=== PATIENT | male | born 1995 | race Two or more races ===

== ENCOUNTER 2019-12-25 12:14 | Inpatient (IN) | payer MEDICAID ==
[~2019-12-25] VITALS: Ht 167.6 cm; Wt 83.2 kg
[2019-12-25 02:35] VITALS: BP 134/86
[2019-12-25 12:53] LABS: Urine Bacteria FEW /hpf (None Seen); Urine Blood Negative /uL (Negative); Urine Specific Gravity 1.015 (1.001-1.035); Urine WBC 49 /hpf (0 - 3)
[2019-12-25 14:09] LABS: Basophils # (auto) 0 10 ^3/uL (0-0.2); Basophils % (auto) 0.1 % (0.0-2.0); Eosinophils # (auto) 0.1 10 ^3/uL (0-0.8); Eosinophils % (auto) 0.5 % (0.0-7.0); Hematocrit 51.5 % (41.0-53.0); Hemoglobin 17.3 g/dL (13.5-17.5); Lymphocytes # (auto) 1.4 10 ^3/uL (0.4-5.4); Lymphocytes % (auto) 8.8 % (10.0-50.0); Mean Corpuscular Hgb Conc. 33.7 g/dL (32.0-36.0); Mean Corpuscular Volume 86.1 fL (80.0-100.0); Monocytes # (auto) 1.1 10 ^3/uL (0-1.3); Monocytes % (auto) 7.1 % (0.0-12.0); Neutrophils # (auto) 13.3 10 ^3/uL (1.6-8.6); Neutrophils % (auto) 83.5 % (37.0-80.0); Nucleated Red Blood Cells % 0.6 %; Platelet Count (auto) 272 10^3/uL (140-450); Red Blood Cells 5.97 10^6/uL (4.5-5.90); Red Cell Distribution Width 14.1 % (11.8-14.3); White Blood Cell 15.9 10^3/uL (4.4-10.8)
[2019-12-25 14:27] LABS: Albumin 3.6 g/dL (3.4-5.0); BUN/Creatinine Ratio 3.4
[2019-12-25 14:34] LABS: Bilirubin, Total 0.6 mg/dL (0.2-1.0); Total Protein 7.8 g/dL (6.4-8.2)
[2019-12-25 14:49] LABS: Potassium 2.8 mmol/L (3.5-5.1)
[2019-12-25] MEDS ORDERED: ONDANSETRON HCL 4 MG/2 ML VIAL IV ONE (15:30)
[2019-12-25] MEDS ORDERED: SODIUM CHLORIDE 0.9% 2,000 ML IV ONE (15:30)
[2019-12-25] MEDS ORDERED: MORPHINE SULF INJ 2 MG/ML SYRINGE 1ML IV ONE ×2 (15:30→16:15)
[2019-12-25] MEDS ORDERED: SODIUM CHLORIDE 0.9% 1,000 ML IVB ONE (15:43)
[2019-12-25] MEDS ORDERED: cefTRIAXone 1GM/50ML D5W 50 ML IV ONE ×2 (15:45→18:45)
[2019-12-25] MEDS: POTASSIUM CHL 20MEQ/100ML 100 ML IV SCH ×4 (15:46→22:06)
[2019-12-25 16:18] LABS: Alcohol, Urine < 3.0 mg/dL (0-10); Amphetamine Screen, Urine NEGATIVE (NEGATIVE); Barbiturate Scree,Urine NEGATIVE (NEGATIVE); Benzodiazephine Screen, Urine NEGATIVE (NEGATIVE); Cannabinoid Screen, Urine NEGATIVE (NEGATIVE); Cocaine Screen, Urine NEGATIVE (NEGATIVE); Opiate Scree,Urine NEGATIVE (NEGATIVE); Phencyclidine Screen, Urine NEGATIVE (NEGATIVE)
[2019-12-25 16:38] LABS: Blood Alcohol < 3.0 mg/dL (0-5); Magnesium 2.3 mg/dL (1.6-2.6)
[2019-12-25] MEDS ORDERED: MORPHINE SULF INJ 2 MG/ML SYRINGE 1ML IV PRN ×2 (18:45→19:00)
[2019-12-25] MEDS ORDERED: FAMOTIDINE (10MG/ML) 2ML VL IV SCH (18:45)
[2019-12-25] MEDS ORDERED: SODIUM CHLORIDE 0.9% 2,200 ML IV ONE (18:45)
[2019-12-25] MEDS ORDERED: DEXTROSE (50%) 50ML SYRG IV PRN (18:45)
[2019-12-25] MEDS ORDERED: THIAMINE 100mg/ml INJ (200mg/2ml VIAL) IV ONE (18:45)
[2019-12-25] MEDS ORDERED: NITROGLYCERIN 0.4 MG SL TAB SL PRN (18:45)
[2019-12-25 18:52] LABS: INR 1.23 (0.9-1.15); Partial Thromboplastin Time 25.9 sec (23.64-32.05)
[2019-12-25] MEDS ORDERED: LORazepam 2MG/ML-1ML VIAL IV PRN (19:00)
[2019-12-25] MEDS ORDERED: PROMETHAZINE HCL 25 MG/ML 1ML IV PRN (19:00)
[2019-12-25] MEDS: MORPHINE SULF INJ 2 MG/ML SYRINGE 1ML IV PRN (20:09)
[2019-12-25] MEDS: SOD CHL 0.9%/ KCL 40MEQ 1,000 ML IV SCH (20:31)
[2019-12-25] MEDS: metroNIDAZOLE 500MG/100ML 100 ML IV SCH (22:25)
[2019-12-25] MEDS: FAMOTIDINE (10MG/ML) 2ML VL IV SCH (22:25)
[2019-12-26] VITALS (7 sets, daily range): BP systolic 134–146; BP diastolic 76–94
[2019-12-26] MEDS: ACCU-CHEK COMFORT CURVE STRIP VI SCH ×4 (00:15→18:16)
[2019-12-26] MEDS: POTASSIUM CHL 20MEQ/100ML 100 ML IV SCH (00:19)
[2019-12-26] MEDS: chlordiazePOXIDE HCL 5 MG CAP PO SCH ×4 (00:20→18:00)
[2019-12-26] MEDS: InsuLIN REG 1unit/0.01ml Soln (100units/ml) SC SCH ×4 (00:20→18:00)
--- NOTE | 2019-12-26 02:35 | NUR ---
Telemetry admit from [facility] admitted to Telemetry unit and oriented to GINA CARRERA RN primary RN, unit, room, bed, and unit policies regarding patient care and visiting hours. Patient now on continuous telemetry monitoring and telemetry reading on arrival to unit is sinus rhythm. Patient placed weighed by bedscale and encouraged to call if they need something. All questions and concerns addressed, patient verbalized understanding. Bed in lowest locked position, side rails up x2, call light within reach. Will round every hour and as needed and continue to monitor.
[2019-12-26] MEDS: MORPHINE SULF INJ 2 MG/ML SYRINGE 1ML IV PRN ×3 (03:05→21:30)
[2019-12-26] MEDS: SOD CHL 0.9%/ KCL 40MEQ 1,000 ML IV SCH ×2 (03:05→08:30)
--- NOTE | 2019-12-26 05:00 | NUR ---
Temperature 100.1 Fahrenheit orally, ice packs applied, blankets removed, temperature of room lowered. Will continue to monitor.
[2019-12-26] MEDS: metroNIDAZOLE 500MG/100ML 100 ML IV SCH (05:51)
--- NOTE | 2019-12-26 06:00 | NUR ---
Temperature reassessed, now 98.3 degrees Fahrenheit orally. No s/s of distress. Will continue to monitor.
--- NOTE | 2019-12-26 07:10 | NUR ---
Patient lying in bed, awake and alert. No s/s of distress. Bed in lowest locked position, side rails up x2, call light within reach. Care endorsed to dayshift RN.
[2019-12-26] MEDS: cefTRIAXone 1GM/50ML D5W 50 ML IV SCH (08:30)
[2019-12-26 09:12] LABS: Basophils # (auto) 0.1 10 ^3/uL (0-0.2); Basophils % (auto) 0.7 % (0.0-2.0); Eosinophils # (auto) 0 10 ^3/uL (0-0.8); Hematocrit 46.2 % (41.0-53.0); Hemoglobin 15.4 g/dL (13.5-17.5); Lymphocytes # (auto) 0.3 10 ^3/uL (0.4-5.4); Mean Corpuscular Hgb Conc. 33.3 g/dL (32.0-36.0); Mean Corpuscular Volume 86.9 fL (80.0-100.0); Monocytes # (auto) 0.9 10 ^3/uL (0-1.3); Monocytes % (auto) 6.1 % (0.0-12.0); Neutrophils # (auto) 13.7 10 ^3/uL (1.6-8.6); Neutrophils % (auto) 91.2 % (37.0-80.0); Nucleated Red Blood Cells % 0.1 %; Platelet Count (auto) 185 10^3/uL (140-450); Red Blood Cells 5.31 10^6/uL (4.5-5.90); Red Cell Distribution Width 14.2 % (11.8-14.3)
[2019-12-26 09:34] LABS: Calcium 8.3 mg/dL (8.5-10.1)
[2019-12-26 09:47] LABS: Albumin 2.7 g/dL (3.4-5.0); BUN/Creatinine Ratio 9.2; Bilirubin, Total 0.8 mg/dL (0.2-1.0); Total Protein 6.1 g/dL (6.4-8.2)
[2019-12-26] MEDS: THIAMINE 100mg/ml INJ (200mg/2ml VIAL) IV SCH (10:06)
[2019-12-26] MEDS: FAMOTIDINE (10MG/ML) 2ML VL IV SCH (10:06)
--- NOTE | 2019-12-26 13:00 | NUR ---
DR STATON ON UNIT
[2019-12-26] MEDS: SOD CHL 0.45% 1,000 ML IV SCH ×2 (14:06→21:31)
--- NOTE | 2019-12-26 19:30 | NUR ---
Opening Shift Note Assumed care of patient, awake and alert oriented x4. No S/S of distress/SOB noted. Bed is in lowest locked position with bed rails up x2 and call light is within reach of the patient. Instructed on POC and to call for assist PRN.
--- NOTE | 2019-12-26 22:30 | NUR ---
Elevated Temperature, Cooling measures: Notified of elevated temperature 101.5 Fahrenheit orally. Ice packs applied, blankets removed with only sheet provided. Temperature of room lowered and placed cool towel on head. Will reassess.
[2019-12-26] MEDS: ACETAMINOPHEN 500 MG TAB PO PRN (22:57)
--- NOTE | 2019-12-27 | NUR ---
Temperature reassessed: Temperature reassessed as 98.0, patient tolerated well. Ice packs removed. Will continue to monitor.
[2019-12-27] MEDS: ACCU-CHEK COMFORT CURVE STRIP VI SCH ×3 (00:18→12:03)
[2019-12-27] MEDS: chlordiazePOXIDE HCL 5 MG CAP PO SCH ×3 (00:19→12:03)
[2019-12-27] MEDS: InsuLIN REG 1unit/0.01ml Soln (100units/ml) SC SCH ×3 (00:26→12:04)
[2019-12-27] MEDS: MORPHINE SULF INJ 2 MG/ML SYRINGE 1ML IV PRN ×2 (04:51→09:00)
[2019-12-27 05:00] VITALS: BP 126/75
--- NOTE | 2019-12-27 05:00 | NUR ---
Elevated Temp, Cooling measures: Notified of elevated temperature 100.3 Fahrenheit orally. Ice packs applied, blankets removed with only sheet provided. Temperature of room lowered and placed cool towel on head. Will reassess.
[2019-12-27] MEDS: SOD CHL 0.45% 1,000 ML IV SCH ×2 (05:36→19:15)
--- NOTE | 2019-12-27 06:10 | NUR ---
Temperature reassessed, continue cooling measures Temperature reassessed as 99.6, keeping ice packs on the patient to reassess. Temperature trending down.
[2019-12-27 06:20] LABS: Basophils # (auto) 0 10 ^3/uL (0-0.2); Basophils % (auto) 0.1 % (0.0-2.0); Eosinophils # (auto) 0 10 ^3/uL (0-0.8); Hematocrit 43.2 % (41.0-53.0); Lymphocytes # (auto) 0.4 10 ^3/uL (0.4-5.4); Lymphocytes % (auto) 3.1 % (10.0-50.0); Mean Corpuscular Hgb Conc. 34.7 g/dL (32.0-36.0); Mean Corpuscular Volume 86.4 fL (80.0-100.0); Monocytes % (auto) 8.6 % (0.0-12.0); Neutrophils # (auto) 10.6 10 ^3/uL (1.6-8.6); Neutrophils % (auto) 88.2 % (37.0-80.0); Platelet Count (auto) 144 10^3/uL (140-450); Red Cell Distribution Width 14.5 % (11.8-14.3)
[2019-12-27 06:41] LABS: Potassium 4.7 mmol/L (3.5-5.1)
[2019-12-27 06:52] LABS: Albumin 2.4 g/dL (3.4-5.0); BUN/Creatinine Ratio 13.6; Bilirubin, Total 3.4 mg/dL (0.2-1.0); Calcium 8.4 mg/dL (8.5-10.1); Total Protein 5.6 g/dL (6.4-8.2)
[2019-12-27 08:00] VITALS: BP 146/81
[2019-12-27] MEDS: THIAMINE 100mg/ml INJ (200mg/2ml VIAL) IV SCH (09:00)
[2019-12-27] MEDS: cefTRIAXone 1GM/50ML D5W 50 ML IV SCH (09:00)
[2019-12-27 09:10] VITALS: BP 146/81
[2019-12-27] MEDS ORDERED: MORPHINE SULF INJ 2 MG/ML SYRINGE 1ML IV PRN (12:30)
[2019-12-27] MEDS ORDERED: chlordiazePOXIDE HCL 5 MG CAP PO PRN (12:30)
[2019-12-27] MEDS ORDERED: LACTULOSE 20Gm/30ML SOLN PO PRN (12:45)
[2019-12-27] MEDS ORDERED: LACTULOSE 20Gm/30ML SOLN PO ONE (12:45)
--- NOTE | 2019-12-27 13:00 | NUR ---
IV removal IV leaking,DC'd with clean sterile technique, catheter fully intact. Pressure dressing applied to site. Patient tolerated well.
--- NOTE | 2019-12-27 13:15 | NUR ---
IV insertion IV access obtained, via clean sterile technique by inserting 20 gauge catheter in the left forearm after 1 attempt. IV secured properly. No trauma to site. Patient tolerated well.
[2019-12-27 13:51] VITALS: BP 127/80
[2019-12-27] MEDS: traMADol HCL 50 MG TAB PO PRN ×2 (13:52→19:55)
--- NOTE | 2019-12-27 14:52 | NUR ---
PAIN REASSESSMENT PATIENT REPORTS PAIN AT A 2/10. PATIENT IS COMFORTABLE AT THIS PAIN LEVEL AND DOES NOT WANT ANY FURTHER PAIN MEDS AT THIS TIME.
[2019-12-27 16:24] VITALS: BP 147/93
[2019-12-27] MEDS: ACETAMINOPHEN 500 MG TAB PO PRN (21:03)
--- NOTE | 2019-12-27 21:30 | NUR ---
Elevated Temperature, Cooling measures: Notified of elevated temperature 101.9 Fahrenheit orally. Ice packs applied, blankets removed with only sheet provided. Temperature of room lowered and placed cool towel on head. Will reassess.
[2019-12-27] MEDS: CIPROFLOXACIN HCL 500 MG TAB PO SCH (21:52)
[2019-12-27] MEDS: FAMOTIDINE 20 MG TAB PO SCH (21:52)
[2019-12-27 22:00] VITALS: BP 138/92
--- NOTE | 2019-12-27 23:00 | NUR ---
Temperature reassessed: Temperature reassessed as 98.0, patient tolerated well. Ice packs removed. Will continue to monitor.
[2019-12-28] MEDS: traMADol HCL 50 MG TAB PO PRN ×2 (04:40→14:02)
[2019-12-28] MEDS: SOD CHL 0.45% 1,000 ML IV SCH ×2 (04:41→16:19)
[2019-12-28 05:00] VITALS: BP 146/96
[2019-12-28] MEDS: ACETAMINOPHEN 500 MG TAB PO PRN (05:23)
--- NOTE | 2019-12-28 05:27 | NUR ---
Elevated Temperature, Cooling measures: Notified of elevated temperature 100.4 Fahrenheit orally. Ice packs applied, patient has only one sheet and placed cool towel on head. Will reassess
--- NOTE | 2019-12-28 06:30 | NUR ---
Temperature reassessed: Temperature reassessed as 99.0, patient tolerated well.
[2019-12-28 09:00] VITALS: BP 135/93
[2019-12-28] MEDS: CIPROFLOXACIN HCL 500 MG TAB PO SCH (09:51)
[2019-12-28] MEDS: FAMOTIDINE 20 MG TAB PO SCH (09:51)
[2019-12-28] MEDS ORDERED: THIAMINE HCL 100 MG TAB PO SCH (10:00)
[2019-12-28] MEDS ORDERED: LACTULOSE 20Gm/30ML SOLN PO PRN (10:00)
[2019-12-28] MEDS ORDERED: MULTIPLE VITAMINS W/ MINERALS TAB PO SCH (10:00)
[2019-12-28] MEDS ORDERED: FAMO20TA10 PO (11:52)
[2019-12-28] MEDS ORDERED: CIP500T PO (11:52)
[2019-12-28] MEDS ORDERED: MULT-1018 PO (11:52)
[2019-12-28] MEDS ORDERED: THIA100T10 PO (11:52)
[2019-12-28 13:00] VITALS: BP 139/94
[2019-12-28] MEDS ORDERED: levoFLOXacin 250 MG TAB PO ONE (14:00)
--- NOTE | 2019-12-28 14:16 | NUR ---
assessment Patient is a 24 year old male who is alert and oriented. Patients cognitive abilities are intact. Prior to admission patient lived home with family and functioned independently. Patient informed me he is able to care for his own ADLs. Per patient he will return home to his prior living arrangements post discharge and family will transport him home. Patient has been admitted for alcohol induced pancreatitis. Per patient he used to be a heavy drinker. Per patient he relapsed and drank 5 beers and ate spicy food and went to sleep. Per patient he woke up with severe abdominal pain and came to ER and was admitted. I offered patient resources for inpatient and out patient ETOH facilities including . Patient accepted resources. I informed patient he has a right to speak to a social work professor regarding all care. I informed patient he has a right to participate in any and all discharge planning. Patient does not have a POA and advanced directive. I have offered patient information on POA and advanced directives. I informed the patient the advantages and benefits of having an Advanced Directive. Patient verbalized understanding and agreed to discharge plan. Addendum: 12/28/19 at 1419 by Roya SOTELO Amended: Links added.
--- NOTE | 2019-12-28 14:36 | NUR ---
IS AT BEDSIDE, TEACHING EXPLAINED, PATIENT VERBALIZED UNDERSTANDING.
[2019-12-28 17:00] VITALS: BP 130/87
[2019-12-28] MEDS ORDERED: LEVO250T69 PO (17:46)
[2019-12-28 17:53] VITALS: BP 135/94
--- NOTE | 2019-12-28 18:50 | NUR ---
Discharge instructions given as ordered. Encourage to follow up with [facility] as instructed. All questions and concerns addressed. Patient verbalized understanding. Medication reconciliation form completed and copy given to patient. IV removed with catheter intact, pressure dressing applied. Patient taken to vehicle via wheelchair with all personal belongings, accompanied by staff and family member. No distress noted at time of departure.
[2019-12-29] MEDS ORDERED: levoFLOXacin 250 MG TAB PO SCH (10:00)
== END 2019-12-28 19:08 | disposition home or self-care (01) | DRG 282 ==
LOC: ER 12:14 → TELE 12:15 → TELE-CENTR 12-26 02:36 → CENTRAL 12-27 12:33
PROVIDERS: ADMIT Internal Medicine; ATTEND Internal Medicine
DX: K85.20 Alcohol induced acute pancreatitis without necrosis or infection (principal); R65.11 Systemic inflammatory response syndrome (SIRS) of non-infectious origin with acute organ dysfunction; D72.829 Elevated white blood cell count, unspecified; N39.0 Urinary tract infection, site not specified; E87.6 Hypokalemia; R79.89 Other specified abnormal findings of blood chemistry; J98.11 Atelectasis; F10.20 Alcohol dependence, uncomplicated; F17.210 Nicotine dependence, cigarettes, uncomplicated; Z20.828 Contact with and (suspected) exposure to other viral communicable diseases; F10.239 Alcohol dependence with withdrawal, unspecified; Y90.9 Presence of alcohol in blood, level not specified
CPT/HCPCS: 36415; 71045; 74176; 80053; 80061; 80307; 80320; 81001; 82150; 82962; 83036; 83690; 83735; 85025; 85610; 85730; 87040; 87086; 96365; 96366; 96368; 96375; 96376; G0378; J0696; J1815; J2405; J3480; J3490

== ENCOUNTER 2020-12-17 12:05 | Inpatient (IN) | payer MEDICAID, OTHER ==
[~2020-12-17] VITALS: Ht 167.6 cm; Wt 68.4 kg
[~2020-12-17 12:05] MED LIST: FAMO20TA10 PO; LEVO250T69 PO; MULT-1018 PO; THIA100T10 PO
[2020-12-17] MEDS ORDERED: DEXTROSE (50%) 50ML SYRG IV PRN (12:45)
[2020-12-17] MEDS ORDERED: INSULIN LANTUS (GLARGINE) 1 /0.01ml (100units/ml) SC ONE (12:45)
[2020-12-17] MEDS: SODIUM CHLORIDE 0.9% 1,000 ML IV SCH ×2 (13:19→17:24)
[2020-12-17] MEDS: ACCU-CHEK COMFORT CURVE STRIP VI SCH ×6 (14:14→22:36)
[2020-12-17] MEDS: InsuLIN R (HUMAN) 100 UNITS in SODIUM CHL 0.9% 99 ML IV SCH ×2 (14:14→15:41)
[2020-12-17 15:08] LABS: Hematocrit 47.6 % (41.0-53.0); Hemoglobin 16.1 g/dL (13.5-17.5); Mean Corpuscular Hemoglobin 30.1 pg (28.0-32.0); Mean Corpuscular Hgb Conc. 33.9 g/dL (32.0-36.0); Mean Corpuscular Volume 88.7 fL (80.0-100.0); Red Blood Cells 5.36 10^6/uL (4.5-5.90); Red Cell Distribution Width 15.3 % (11.8-14.3); White Blood Cell 20.7 10^3/uL (4.4-10.8)
[2020-12-17 15:18] LABS: Basophils % (manual) 0 (0.0-2.0); Blast Cells 0; Eosinophils % (manual) 0 (0-7); Metamyelocytes % 0; Myelocytes % 0; Promyelocytes % 0; Reactive Lymphocytes 0
[2020-12-17 15:24] LABS: BUN/Creatinine Ratio 11.7; Calcium 9.5 mg/dL (8.5-10.1); Magnesium 2.8 mg/dL (1.6-2.6); Phosphorus 8.1 mg/dL (2.5-4.90)
[2020-12-17 15:32] LABS: Potassium 6.4 mmol/L (3.5-5.1)
[2020-12-17] MEDS ORDERED: InsuLIN REG 1unit/0.01ml Soln (100units/ml) IV ONE (16:00)
[2020-12-17] MEDS ORDERED: FUROSEMIDE 20 MG/2 ML VIAL IV ONE (16:00)
[2020-12-17] MEDS ORDERED: SODIUM ZIRCONIUM CYCL 10 GM PAK PO ONE (16:00)
[2020-12-17] MEDS ORDERED: CALCIUM GLUC 1,000mg/50ml-NS 50 ML IV ONE (16:00)
[2020-12-17] MEDS ORDERED: SODIUM BICARBONATE 8.4% INJ 50ML SYRINGE IV ONE (16:00)
[2020-12-17] MEDS ORDERED: ALBUTEROL SULF 2.5 MG/0.5ML(0.5%) NEB SOLN NEB ONE (16:00)
[2020-12-17] MEDS ORDERED: SODIUM CHLORIDE 0.9% 1,000 ML IV SCH ×2 (16:45→18:45)
[2020-12-17] MEDS ORDERED: ACETAMINOPHEN 500 MG TAB PO PRN (17:00)
[2020-12-17] MEDS ORDERED: ONDANSETRON HCL 4 MG/2 ML VIAL IV PRN (17:00)
[2020-12-17] MEDS ORDERED: NITROGLYCERIN 0.4 MG SL TAB SL PRN (17:00)
[2020-12-17] MEDS ORDERED: MORPHINE SULFATE INJECTION 2 MG/ML SYRG IV PRN ×2 (17:00)
[2020-12-17 18:20] LABS: Urine Bacteria NONE SEEN /hpf (None Seen); Urine Blood Negative /uL (Negative); Urine Specific Gravity 1.009 (1.001-1.035); Urine WBC 1 /hpf (0 - 3)
[2020-12-17 18:31] LABS: Band Neutrophils % (manual) 11; Lymphocytes % (manual) 6 (10.0-50.0); Monocytes % (manual) 3 (0-12)
[2020-12-17 20:09] LABS: BUN/Creatinine Ratio 13.4; Calcium 9.2 mg/dL (8.5-10.1); Potassium 4.3 mmol/L (3.5-5.1)
[2020-12-17] MEDS: SOD CHL 0.45% 1,000 ML IV SCH (21:40)
[2020-12-17] MEDS: METOCLOPRAMIDE HCL 5MG/ml INJ 2ml VIAL IV SCH (21:42)
[2020-12-18] MEDS: SOD CHL 0.45% 1,000 ML IV SCH ×4 (01:05→15:46)
[2020-12-18 01:35] LABS: Calcium 8.8 mg/dL (8.5-10.1); Potassium 4.3 mmol/L (3.5-5.1)
[2020-12-18] MEDS: ACCU-CHEK COMFORT CURVE STRIP VI SCH ×10 (01:40→21:05)
[2020-12-18] MEDS: METOCLOPRAMIDE HCL 5MG/ml INJ 2ml VIAL IV SCH ×2 (05:59→15:46)
[2020-12-18 07:04] LABS: BUN/Creatinine Ratio 16.1; Calcium 8.5 mg/dL (8.5-10.1); Potassium 3.3 mmol/L (3.5-5.1)
[2020-12-18] MEDS ORDERED: INSULIN LANTUS (GLARGINE) 1 /0.01ml (100units/ml) SC SCH ×2 (10:00→22:00)
[2020-12-18] MEDS ORDERED: PANTOPRAZOLE 40 MG/10 ML VIAL INJ IV SCH (10:00)
[2020-12-18] MEDS: InsuLIN REG 1unit/0.01ml Soln (100units/ml) SC SCH ×3 (12:00→17:30)
[2020-12-18] MEDS ORDERED: ACCU-CHEK COMFORT CURVE STRIP VI SCH (12:00)
[2020-12-18] MEDS ORDERED: DEXTROSE (50%) 50ML SYRG IV PRN (14:15)
[2020-12-18] MEDS ORDERED: POTASSIUM CHL 20 Meq TABLET PO ONE (14:15)
[2020-12-18] MEDS ORDERED: INSU1INJ19 SC (17:32)
[2020-12-18 22:00] VITALS: BP 108/68
[2020-12-18] MEDS ORDERED: InsuLIN REG 1unit/0.01ml Soln (100units/ml) SC SCH (22:00)
[2020-12-19] MEDS: SOD CHL 0.45% 1,000 ML IV SCH (04:37)
[2020-12-19 04:55] LABS: Alcohol, Urine < 3.0 mg/dL (0-10); Amphetamine Screen, Urine NEGATIVE (NEGATIVE); Barbiturate Scree,Urine NEGATIVE (NEGATIVE); Benzodiazephine Screen, Urine NEGATIVE (NEGATIVE); Cannabinoid Screen, Urine NEGATIVE (NEGATIVE); Cocaine Screen, Urine NEGATIVE (NEGATIVE); Opiate Scree,Urine NEGATIVE (NEGATIVE); Phencyclidine Screen, Urine NEGATIVE (NEGATIVE)
[2020-12-19 05:00] VITALS: BP 108/64
[2020-12-19 05:52] LABS: Basophils # (auto) 0 10 ^3/uL (0-0.2); Basophils % (auto) 0.4 % (0.0-2.0); Eosinophils # (auto) 0.1 10 ^3/uL (0-0.8); Eosinophils % (auto) 1.6 % (0.0-7.0); Hematocrit 36.9 % (41.0-53.0); Hemoglobin 13.3 g/dL (13.5-17.5); Lymphocytes # (auto) 1.7 10 ^3/uL (0.4-5.4); Lymphocytes % (auto) 24.4 % (10.0-50.0); Mean Corpuscular Hemoglobin 30.2 pg (28.0-32.0); Mean Corpuscular Volume 83.8 fL (80.0-100.0); Monocytes # (auto) 0.8 10 ^3/uL (0-1.3); Monocytes % (auto) 10.9 % (0.0-12.0); Neutrophils # (auto) 4.4 10 ^3/uL (1.6-8.6); Neutrophils % (auto) 62.7 % (37.0-80.0); Red Cell Distribution Width 15.1 % (11.8-14.3)
[2020-12-19] MEDS: ACCU-CHEK COMFORT CURVE STRIP VI SCH (06:09)
[2020-12-19] MEDS: InsuLIN REG 1unit/0.01ml Soln (100units/ml) SC SCH (06:09)
[2020-12-19 06:14] LABS: Magnesium 1.9 mg/dL (1.6-2.6); Potassium 3.7 mmol/L (3.5-5.1)
[2020-12-19 06:21] LABS: Albumin 3.2 g/dL (3.4-5.0); BUN/Creatinine Ratio 18.8; Bilirubin, Total 0.4 mg/dL (0.2-1.0); Calcium 8.5 mg/dL (8.5-10.1); Total Protein 6.4 g/dL (6.4-8.2)
[2020-12-19 08:00] VITALS: BP 112/56
[2020-12-19] MEDS ORDERED: POTASSIUM CHL 20 Meq TABLET PO ONE (09:00)
[2020-12-19] MEDS ORDERED: MAGNESIUM SULFATE 1GM/100ML 100 ML IV ONE (09:00)
[2020-12-19] MEDS ORDERED: DEXTROSE (50%) 50ML SYRG IV PRN (09:00)
[2020-12-19] MEDS ORDERED: InsuLIN REG 1unit/0.01ml Soln (100units/ml) SC SCH (11:30)
[2020-12-19] MEDS ORDERED: ACCU-CHEK COMFORT CURVE STRIP VI SCH (11:30)
[2020-12-19] MEDS ORDERED: INSLANTI SC (12:43)
[2020-12-19] MEDS ORDERED: METF-370 PO (12:43)
[2020-12-19 12:45] VITALS: BP 112/56
[2020-12-19] MEDS ORDERED: METF-371 PO (12:48)
== END 2020-12-19 14:40 | disposition home or self-care (01) | DRG 420 ==
LOC: ER 12:05 → MERGE 16:50 → OVERFLOW 16:50 → TELE-WESTW 12-18 13:01
PROVIDERS: ADMIT Nurse Practitioner Acute Care; ATTEND Internal Medicine
DX: E11.10 Type 2 diabetes mellitus with ketoacidosis without coma (principal); N17.0 Acute kidney failure with tubular necrosis; K86.2 Cyst of pancreas; R65.10 Systemic inflammatory response syndrome (SIRS) of non-infectious origin without acute organ dysfunction; E87.5 Hyperkalemia; Z20.822 Contact with and (suspected) exposure to COVID-19; F10.20 Alcohol dependence, uncomplicated; Z91.14 Patient's other noncompliance with medication regimen; Z79.4 Long term (current) use of insulin; Z71.41 Alcohol abuse counseling and surveillance of alcoholic; Y90.9 Presence of alcohol in blood, level not specified
CPT/HCPCS: 36415; 36600; 74176; 80048; 80053; 80061; 80307; 81001; 82010; 82805; 82962; 83735; 83930; 84100; 84132; 84443; 85007; 85025; 85027; 87081; 87426; 94644; 96372; 99291; C9113; G0378; J1815

== ENCOUNTER 2021-07-12 00:47 | Inpatient (IN) | payer MEDICAID ==
[~2021-07-12] VITALS: Ht 170.2 cm; Wt 67.6 kg
[~2021-07-12 00:47] MED LIST changes: +INSLANTI SC; +INSU1INJ19 SC
[2021-07-12] MEDS ORDERED: DEXTROSE (50%) 50ML SYRG IV PRN ×2 (01:00→23:30)
[2021-07-12] MEDS ORDERED: INSULIN LANTUS (GLARGINE) 1 /0.01ml (100units/ml) SC ONE (01:00)
[2021-07-12] MEDS ORDERED: SODIUM CHLORIDE 0.9% 1,000 ML IV ONE ×2 (01:00→04:15)
[2021-07-12] MEDS ORDERED: InsuLIN R (HUMAN) 100 UNITS in SODIUM CHL 0.9% 99 ML IV SCH (01:00)
[2021-07-12 01:56] LABS: Basophils # (auto) 0.2 10 ^3/uL (0-0.2); Eosinophils # (auto) 0 10 ^3/uL (0-0.8); Mean Corpuscular Volume 89.1 fL (80.0-100.0)
[2021-07-12 01:57] LABS: Basophils % (auto) 0.8 % (0.0-2.0); Hematocrit 53.4 % (41.0-53.0); Hemoglobin 17.2 g/dL (13.5-17.5); Lymphocytes # (auto) 2.7 10 ^3/uL (0.4-5.4); Lymphocytes % (auto) 13.1 % (10.0-50.0); Mean Corpuscular Hemoglobin 28.7 pg (28.0-32.0); Mean Corpuscular Hgb Conc. 32.2 g/dL (32.0-36.0); Monocytes # (auto) 1.3 10 ^3/uL (0-1.3); Monocytes % (auto) 6.1 % (0.0-12.0); Neutrophils # (auto) 16.5 10 ^3/uL (1.6-8.6); Nucleated Red Blood Cells % 0.1 %; Red Blood Cells 5.99 10^6/uL (4.5-5.90); White Blood Cell 20.6 10^3/uL (4.4-10.8)
[2021-07-12] MEDS ORDERED: SODIUM BICARBONATE 8.4 % INJ 50ML VIAL IV ONE ×2 (02:00→03:00)
[2021-07-12] MEDS: ACCU-CHEK COMFORT CURVE STRIP VI SCH ×14 (02:02→22:42)
[2021-07-12] MEDS ORDERED: InsuLIN REG 1unit/0.01ml Soln (100units/ml) ONE (02:39)
[2021-07-12 03:17] LABS: Albumin 4.9 g/dL (3.4-5.0); Calcium 11.3 mg/dL (8.5-10.1); Magnesium 2.2 mg/dL (1.6-2.6); Potassium 4.8 mmol/L (3.5-5.1)
[2021-07-12 03:25] LABS: Bilirubin, Total 0.4 mg/dL (0.2-1.0); Total Protein 9.8 g/dL (6.4-8.2)
[2021-07-12 03:32] LABS: CRP High Sensitivity 0.21 mg/dL (< 0.3)
[2021-07-12] MEDS ORDERED: NITROGLYCERIN 0.4 MG SL TAB SL PRN (05:15)
[2021-07-12] MEDS ORDERED: MORPHINE SULFATE INJECTION 2 MG/ML SYRG IV PRN (05:15)
[2021-07-12] MEDS ORDERED: ACETAMINOPHEN 325 MG TAB PO PRN (05:15)
[2021-07-12] MEDS ORDERED: HYDROcodone-ACET 5/325MG TAB PO PRN (05:15)
[2021-07-12] MEDS ORDERED: DOCUSATE SOD 100 MG CAP PO PRN (05:15)
[2021-07-12] MEDS ORDERED: MORPHINE SULFATE 4 MG/ML SYR/VIAL IV PRN (05:15)
[2021-07-12] MEDS ORDERED: ONDANSETRON HCL 4 MG/2 ML VIAL IV PRN (05:15)
[2021-07-12] MEDS: SODIUM CHLORIDE 0.9% 1,000 ML IV SCH ×2 (05:30→23:08)
[2021-07-12 06:48] LABS: Alcohol, Urine < 3.0 mg/dL (0-10); Amphetamine Screen, Urine NEGATIVE (NEGATIVE); Barbiturate Scree,Urine NEGATIVE (NEGATIVE); Benzodiazephine Screen, Urine NEGATIVE (NEGATIVE); Cannabinoid Screen, Urine NEGATIVE (NEGATIVE); Cocaine Screen, Urine NEGATIVE (NEGATIVE); Opiate Scree,Urine NEGATIVE (NEGATIVE); Phencyclidine Screen, Urine NEGATIVE (NEGATIVE)
[2021-07-12 06:56] LABS: Urine Bacteria NONE SEEN /hpf (None Seen); Urine Blood TRACE /uL (Negative); Urine Specific Gravity 1.022 (1.001-1.035); Urine WBC <1 /hpf (0 - 3)
[2021-07-12 07:28] LABS: Basophils # (auto) 0.1 10 ^3/uL (0-0.2); Basophils % (auto) 0.5 % (0.0-2.0); Eosinophils # (auto) 0 10 ^3/uL (0-0.8); Hematocrit 41.3 % (41.0-53.0); Lymphocytes # (auto) 1.7 10 ^3/uL (0.4-5.4); Lymphocytes % (auto) 8.6 % (10.0-50.0); Mean Corpuscular Hgb Conc. 33.8 g/dL (32.0-36.0); Mean Corpuscular Volume 85.6 fL (80.0-100.0); Monocytes # (auto) 1.3 10 ^3/uL (0-1.3); Monocytes % (auto) 6.6 % (0.0-12.0); Neutrophils # (auto) 16.2 10 ^3/uL (1.6-8.6); Neutrophils % (auto) 84.3 % (37.0-80.0); Red Blood Cells 4.82 10^6/uL (4.5-5.90); Red Cell Distribution Width 13.8 % (11.8-14.3); White Blood Cell 19.2 10^3/uL (4.4-10.8)
[2021-07-12 07:34] LABS: Potassium 4.2 mmol/L (3.5-5.1)
[2021-07-12 07:51] LABS: Albumin 3.6 g/dL (3.4-5.0); BUN/Creatinine Ratio 11.8; Bilirubin, Total 0.4 mg/dL (0.2-1.0); Calcium 8.2 mg/dL (8.5-10.1); Total Protein 7.4 g/dL (6.4-8.2)
[2021-07-12] MEDS: cefTRIAXone 1GM/50ML D5W 50 ML IV SCH (09:14)
[2021-07-12] MEDS ORDERED: ALBUTEROL SULF 2.5 MG/0.5ML(0.5%) NEB SOLN NEB PRN (09:45)
[2021-07-12] MEDS ORDERED: ENOXAPARIN SOD 40 MG/0.4 ML SYRINGE SC SCH (10:00)
[2021-07-12] MEDS: THIAMINE HCL 100 MG TAB PO SCH (10:12)
[2021-07-12] MEDS: FOLIC ACID 1 MG TAB PO SCH (10:12)
[2021-07-12] MEDS: FAMOTIDINE (10MG/ML) 2ML VL IV SCH ×2 (10:12→23:09)
[2021-07-12] MEDS: ASCORBIC ACID 500 MG TAB PO SCH ×2 (10:13→23:09)
[2021-07-12] MEDS: ZINC SULFATE 220mg CAP or TAB PO SCH (10:13)
[2021-07-12] MEDS: MULTIPLE VITAMIN TAB PO SCH (10:13)
[2021-07-12 11:35] LABS: Potassium 3.8 mmol/L (3.5-5.1)
[2021-07-12 11:41] LABS: Calcium 8.5 mg/dL (8.5-10.1); Magnesium 1.6 mg/dL (1.6-2.6)
[2021-07-12 19:21] LABS: Calcium 8.3 mg/dL (8.5-10.1); Potassium 4.7 mmol/L (3.5-5.1)
[2021-07-12 23:44] LABS: BUN/Creatinine Ratio 11.3; Calcium 8.4 mg/dL (8.5-10.1); Magnesium 2.5 mg/dL (1.6-2.6); Phosphorus 1.6 mg/dL (2.5-4.90); Potassium 3.4 mmol/L (3.5-5.1)
[2021-07-13 03:50] VITALS: BP 110/68
[2021-07-13] MEDS: ACCU-CHEK COMFORT CURVE STRIP VI SCH ×5 (04:29→15:59)
[2021-07-13] MEDS: InsuLIN REG 1unit/0.01ml Soln (100units/ml) SC SCH ×5 (04:30→15:59)
[2021-07-13 09:00] VITALS: BP 105/69
[2021-07-13] MEDS ORDERED: cefTRIAXone 1GM/50ML D5W 50 ML IV SCH (09:00)
[2021-07-13 09:23] LABS: Basophils # (auto) 0 10 ^3/uL (0-0.2); Basophils % (auto) 0.9 % (0.0-2.0); Eosinophils # (auto) 0.1 10 ^3/uL (0-0.8); Eosinophils % (auto) 1.8 % (0.0-7.0); Hematocrit 42.9 % (41.0-53.0); Hemoglobin 14.8 g/dL (13.5-17.5); Lymphocytes # (auto) 1.6 10 ^3/uL (0.4-5.4); Lymphocytes % (auto) 29.5 % (10.0-50.0); Mean Corpuscular Hemoglobin 28.5 pg (28.0-32.0); Mean Corpuscular Hgb Conc. 34.6 g/dL (32.0-36.0); Mean Corpuscular Volume 82.3 fL (80.0-100.0); Monocytes # (auto) 0.6 10 ^3/uL (0-1.3); Monocytes % (auto) 10.7 % (0.0-12.0); Neutrophils # (auto) 3.1 10 ^3/uL (1.6-8.6); Neutrophils % (auto) 57.1 % (37.0-80.0); Nucleated Red Blood Cells % 0.1 %; Red Blood Cells 5.21 10^6/uL (4.5-5.90); Red Cell Distribution Width 14.1 % (11.8-14.3); White Blood Cell 5.4 10^3/uL (4.4-10.8)
[2021-07-13] MEDS: cefTRIAXone 1GM/50ML D5W 50 ML IV SCH (09:27)
[2021-07-13] MEDS: FAMOTIDINE (10MG/ML) 2ML VL IV SCH (09:27)
[2021-07-13] MEDS: MULTIPLE VITAMIN TAB PO SCH (09:28)
[2021-07-13] MEDS: ZINC SULFATE 220mg CAP or TAB PO SCH (09:28)
[2021-07-13] MEDS: FOLIC ACID 1 MG TAB PO SCH (09:28)
[2021-07-13] MEDS: ASCORBIC ACID 500 MG TAB PO SCH (09:28)
[2021-07-13] MEDS: THIAMINE HCL 100 MG TAB PO SCH (09:28)
[2021-07-13 09:38] LABS: Albumin 3.7 g/dL (3.4-5.0); Calcium 8.9 mg/dL (8.5-10.1)
[2021-07-13 09:42] LABS: BUN/Creatinine Ratio 11.4; Bilirubin, Total 0.3 mg/dL (0.2-1.0); Total Protein 7.4 g/dL (6.4-8.2)
[2021-07-13] MEDS ORDERED: NEUTRA-PHOS TABLET PO ONE (10:00)
[2021-07-13] MEDS ORDERED: INSULIN LANTUS (GLARGINE) 1 /0.01ml (100units/ml) SC SCH (10:00)
[2021-07-13] MEDS ORDERED: POTASSIUM EFFERVESENT TAB 25 MEQ PO ONE (11:00)
[2021-07-13] MEDS ORDERED: INSU-567 XX ×2 (11:01→11:13)
[2021-07-13 14:30] VITALS: BP 123/82
[2021-07-13] MEDS: SODIUM CHLORIDE 0.9% 1,000 ML IV SCH (14:35)
[2021-07-13 17:00] VITALS: BP 114/68
== END 2021-07-13 19:26 | disposition home or self-care (01) | DRG 420 ==
LOC: ER 00:50 → TELE 05:10 → CENTRAL 07-13 03:50
PROVIDERS: ADMIT Nurse Practitioner Family; ATTEND Internal Medicine
DX: E11.10 Type 2 diabetes mellitus with ketoacidosis without coma (principal); N17.0 Acute kidney failure with tubular necrosis; D72.829 Elevated white blood cell count, unspecified; D75.839 Thrombocytosis, unspecified; Z20.822 Contact with and (suspected) exposure to COVID-19; Z79.4 Long term (current) use of insulin; Z83.3 Family history of diabetes mellitus; Z87.891 Personal history of nicotine dependence; Z91.14 Patient's other noncompliance with medication regimen
CPT/HCPCS: 36415; 36600; 71045; 80048; 80053; 80307; 81001; 82010; 82728; 82805; 82962; 83036; 83615; 83735; 84100; 85025; 86141; 87040; 87426; 93005; 96365; 96372; 96375; 99291; G0378; J0696; J1815; J3490

== ENCOUNTER 2021-09-03 22:17 | Inpatient (IN) | payer MEDICAID ==
[~2021-09-03] VITALS: Ht 172.7 cm; Wt 65.8 kg
[~2021-09-03 22:17] MED LIST changes: +INSU-567 XX; -LEVO250T69 PO
[2021-09-03] MEDS ORDERED: ONDANSETRON HCL 4 MG/2 ML VIAL IV ONE (22:45)
[2021-09-03] MEDS ORDERED: SODIUM CHLORIDE 0.9% 1,000 ML IV ONE (22:45)
[2021-09-03] MEDS ORDERED: HYDROmorphone HCL 2 MG/ML VL IV ONE (22:45)
[2021-09-03] MEDS ORDERED: SODIUM BICARBONATE 8.4% INJ 50ML SYRINGE ONE (23:26)
[2021-09-03] MEDS ORDERED: SODIUM BICARBONATE 8.4 % INJ 50ML VIAL IV ONE (23:30)
[2021-09-03 23:39] LABS: Basophils # (auto) 0.1 10 ^3/uL (0-0.2); Basophils % (auto) 0.7 % (0.0-2.0); Eosinophils # (auto) 0 10 ^3/uL (0-0.8); Neutrophils % (auto) 81.7 % (37.0-80.0); Nucleated Red Blood Cells % 0.1 %
[2021-09-03 23:40] LABS: Hematocrit 54.2 % (41.0-53.0); Hemoglobin 17.7 g/dL (13.5-17.5); Lymphocytes # (auto) 1.9 10 ^3/uL (0.4-5.4); Lymphocytes % (auto) 12.1 % (10.0-50.0); Mean Corpuscular Hemoglobin 28.9 pg (28.0-32.0); Mean Corpuscular Hgb Conc. 32.6 g/dL (32.0-36.0); Mean Corpuscular Volume 88.7 fL (80.0-100.0); Monocytes # (auto) 0.9 10 ^3/uL (0-1.3); Monocytes % (auto) 5.5 % (0.0-12.0); Neutrophils # (auto) 12.9 10 ^3/uL (1.6-8.6); Red Blood Cells 6.11 10^6/uL (4.5-5.90); Red Cell Distribution Width 13.7 % (11.8-14.3); White Blood Cell 15.8 10^3/uL (4.4-10.8)
[2021-09-04] VITALS (19 sets, daily range): BP systolic 90–109; BP diastolic 46–73
[2021-09-04 00:01] LABS: Albumin 4.7 g/dL (3.4-5.0); BUN/Creatinine Ratio 7.9; Calcium 10.1 mg/dL (8.5-10.1); Magnesium 2.4 mg/dL (1.6-2.6); Potassium 5.2 mmol/L (3.5-5.1)
[2021-09-04 00:04] LABS: Bilirubin, Total 0.4 mg/dL (0.2-1.0); Total Protein 9.2 g/dL (6.4-8.2)
[2021-09-04] MEDS ORDERED: SODIUM CHLORIDE 0.9% 2,000 ML IV ONE (00:45)
[2021-09-04] MEDS ORDERED: SODIUM BICARBONATE 8.4 % INJ 50ML VIAL IV ONE (00:45)
[2021-09-04 01:12] LABS: Urine Bacteria NONE SEEN /hpf (None Seen); Urine Blood Negative /uL (Negative); Urine Hyaline Cast FEW /lpf (0 - 2); Urine Specific Gravity 1.027 (1.001-1.035); Urine WBC <1 /hpf (0 - 3)
[2021-09-04] MEDS ORDERED: INSULIN LANTUS (GLARGINE) 1 /0.01ml (100units/ml) SC ONE ×2 (01:30→13:45)
[2021-09-04] MEDS ORDERED: DEXTROSE (50%) 50ML SYRG IV PRN ×3 (01:30→22:45)
[2021-09-04] MEDS: ACCU-CHEK COMFORT CURVE STRIP VI SCH ×8 (01:38→12:00)
[2021-09-04] MEDS ORDERED: InsuLIN REG 1unit/0.01ml Soln (100units/ml) ONE (01:43)
[2021-09-04] MEDS: SODIUM CHLORIDE 0.9% 1,000 ML IV SCH ×7 (01:45→20:57)
[2021-09-04] MEDS: InsuLIN R (HUMAN) 100 UNITS in SODIUM CHL 0.9% 99 ML IV SCH ×3 (01:52→06:32)
[2021-09-04] MEDS ORDERED: MORPHINE SULFATE INJECTION 2 MG/ML SYRG IV PRN (02:00)
[2021-09-04] MEDS ORDERED: ONDANSETRON HCL 4 MG/2 ML VIAL IV PRN (02:00)
[2021-09-04] MEDS ORDERED: ACETAMINOPHEN 325 MG TAB PO PRN (02:00)
[2021-09-04] MEDS: D5W/SOD CHLO 0.9% 1,000 ML IV SCH ×2 (02:00→04:58)
[2021-09-04] MEDS ORDERED: hydrALAZINE HCL 10 MG TAB PO PRN (02:00)
[2021-09-04] MEDS ORDERED: HYDROcodone-ACET 5/325MG TAB PO PRN (02:00)
[2021-09-04 03:17] LABS: BUN/Creatinine Ratio 10.5; Calcium 7.4 mg/dL (8.5-10.1)
[2021-09-04] MEDS ORDERED: SODIUM CHLORIDE 0.9% 1,000 ML IV SCH (05:30)
[2021-09-04 08:09] LABS: BUN/Creatinine Ratio 9.2; Calcium 7.8 mg/dL (8.5-10.1); Potassium 3.4 mmol/L (3.5-5.1)
[2021-09-04 10:56] LABS: BUN/Creatinine Ratio 8.8; Calcium 7.8 mg/dL (8.5-10.1); Potassium 3.3 mmol/L (3.5-5.1)
[2021-09-04] MEDS ORDERED: ACCU-CHEK COMFORT CURVE STRIP VI SCH ×3 (14:00→16:00)
[2021-09-04] MEDS ORDERED: InsuLIN REG 1unit/0.01ml Soln (100units/ml) SC SCH (16:00)
[2021-09-04] MEDS ORDERED: InsuLIN R (HUMAN) 100 UNITS in SODIUM CHL 0.9% 99 ML IV SCH (16:15)
[2021-09-04 17:29] LABS: BUN/Creatinine Ratio 14.8; Calcium 8.2 mg/dL (8.5-10.1); Potassium 3.2 mmol/L (3.5-5.1)
[2021-09-04 19:50] LABS: BUN/Creatinine Ratio 15.3; Calcium 8.5 mg/dL (8.5-10.1); Potassium 3.1 mmol/L (3.5-5.1)
[2021-09-04] MEDS: INSULIN LANTUS (GLARGINE) 1 /0.01ml (100units/ml) SC SCH (22:00)
[2021-09-04] MEDS: InsuLIN REG 1unit/0.01ml Soln (100units/ml) SC SCH (23:52)
[2021-09-05] VITALS (7 sets, daily range): BP systolic 96–112; BP diastolic 61–73
[2021-09-05] MEDS: ACCU-CHEK COMFORT CURVE STRIP VI SCH ×4 (04:00→12:00)
[2021-09-05 04:28] LABS: Calcium 7.8 mg/dL (8.5-10.1); Magnesium 1.8 mg/dL (1.6-2.6)
[2021-09-05] MEDS: SODIUM CHLORIDE 0.9% 1,000 ML IV SCH ×2 (04:28→10:10)
[2021-09-05] MEDS: InsuLIN REG 1unit/0.01ml Soln (100units/ml) SC SCH ×3 (04:29→12:00)
[2021-09-05 04:31] LABS: BUN/Creatinine Ratio 13.6
[2021-09-05 04:54] LABS: Potassium 2.6 mmol/L (3.5-5.1)
[2021-09-05] MEDS: POTASSIUM CHL 20 Meq TABLET PO SCH ×2 (05:23→08:03)
[2021-09-05] MEDS ORDERED: INSULIN LANTUS (GLARGINE) 1 /0.01ml (100units/ml) SC SCH (10:00)
[2021-09-05] MEDS: INSULIN LANTUS (GLARGINE) 1 /0.01ml (100units/ml) SC SCH (10:24)
[2021-09-05] MEDS ORDERED: INSU100I44 SC (11:03)
[2021-09-05] MEDS ORDERED: INSU1INJ19 SC (11:03)
[2021-09-05 12:13] LABS: Albumin 3.2 g/dL (3.4-5.0); Potassium 3.3 mmol/L (3.5-5.1)
[2021-09-05 12:16] LABS: BUN/Creatinine Ratio 17.1; Bilirubin, Total 0.8 mg/dL (0.2-1.0); Total Protein 7.3 g/dL (6.4-8.2)
[2021-09-05] MEDS ORDERED: POTASSIUM CHL 20 Meq TABLET PO ONE (13:15)
== END 2021-09-05 14:41 | disposition home or self-care (01) | DRG 420 ==
LOC: ER 22:19 → OVERFLOW 09-04 01:51 → ICU WEST 09-04 03:42 → TELE 09-05 14:07 → ICU WEST 09-05 14:35
PROVIDERS: ADMIT Nurse Practitioner Family; ATTEND Hospitalist
DX: E11.10 Type 2 diabetes mellitus with ketoacidosis without coma (principal); N17.9 Acute kidney failure, unspecified; D72.829 Elevated white blood cell count, unspecified; Z20.822 Contact with and (suspected) exposure to COVID-19; Z79.4 Long term (current) use of insulin; Z83.3 Family history of diabetes mellitus; E87.5 Hyperkalemia
CPT/HCPCS: 36415; 36600; 71045; 80048; 80053; 81001; 82010; 82805; 82962; 83036; 83690; 83735; 83930; 84100; 85025; 87081; 93005; 96361; 96374; 96375; G0378; J1815; J2405

== ENCOUNTER 2022-07-15 12:19 | Inpatient (IN) | payer MEDICAID ==
[~2022-07-15] VITALS: Ht 167.6 cm; Wt 68.8 kg
[~2022-07-15 12:19] MED LIST changes: -INSLANTI SC; +INSU100I44 SC; -THIA100T10 PO
[2022-07-15] MEDS ORDERED: SODIUM CHLORIDE 0.9% 1,000 ML IV ONE ×2 (13:15)
[2022-07-15 13:21] LABS: Basophils # (auto) 0.1 10 ^3/uL (0-0.2); Eosinophils # (auto) 0 10 ^3/uL (0-0.8); Eosinophils % (auto) 0.1 % (0.0-7.0); Lymphocytes # (auto) 1.9 10 ^3/uL (0.4-5.4); Mean Corpuscular Volume 88.1 fL (80.0-100.0)
[2022-07-15 13:24] LABS: Basophils % (auto) 0.4 % (0.0-2.0); Hematocrit 52.6 % (41.0-53.0); Hemoglobin 16.7 g/dL (13.5-17.5); Lymphocytes % (auto) 13.3 % (10.0-50.0); Mean Corpuscular Hgb Conc. 31.7 g/dL (32.0-36.0); Monocytes % (auto) 6.8 % (0.0-12.0); Neutrophils # (auto) 11.6 10 ^3/uL (1.6-8.6); Neutrophils % (auto) 79.4 % (37.0-80.0); Nucleated Red Blood Cells % 0.1 %; Red Blood Cells 5.96 10^6/uL (4.5-5.90); Red Cell Distribution Width 13.8 % (11.8-14.3); White Blood Cell 14.6 10^3/uL (4.4-10.8)
[2022-07-15 13:53] LABS: Potassium 5.5 mmol/L (3.5-5.1)
[2022-07-15 13:58] LABS: Albumin 4.1 g/dL (3.4-5.0); Calcium 9.6 mg/dL (8.5-10.1)
[2022-07-15 14:00] LABS: Bilirubin, Total 0.5 mg/dL (0.2-1.0); Total Protein 8.7 g/dL (6.4-8.2)
[2022-07-15] MEDS ORDERED: DEXTROSE (50%) 50ML SYRG IV PRN (16:00)
[2022-07-15] MEDS ORDERED: INSULIN LANTUS (GLARGINE) 1 /0.01ml (100units/ml) SC ONE (16:00)
[2022-07-15] MEDS ORDERED: MORPHINE SULFATE INJ 2 MG/ml SYRG IV PRN ×2 (16:15→16:45)
[2022-07-15] MEDS ORDERED: cefTRIAXone 1GM/50ML D5W 50 ML IV ONE (16:15)
[2022-07-15] MEDS ORDERED: ACETAMINOPHEN 325 MG TAB PO PRN (16:15)
[2022-07-15] MEDS ORDERED: KETOROLAC TROMETH 30 MG/ML 1ML VIAL IV ONE (16:15)
[2022-07-15] MEDS ORDERED: PANTOPRAZOLE 40 MG TAB PO ONE (16:15)
[2022-07-15] MEDS ORDERED: NITROGLYCERIN 0.4 MG SL TAB SL PRN ×2 (16:15→16:45)
[2022-07-15] MEDS ORDERED: PIPERACILLIN-TAZOB 3.375GM 100 ML IV ONE (16:30)
[2022-07-15] MEDS ORDERED: CLINDAMYCIN 600MG IV 50 ML IV ONE (16:30)
[2022-07-15] MEDS: InsuLIN R (HUMAN) 100 UNITS in SODIUM CHL 0.9% 99 ML IV SCH (17:37)
[2022-07-15] MEDS: SODIUM CHLORIDE 0.9% 1,000 ML IV SCH (17:44)
[2022-07-15] MEDS: ACCU-CHEK COMFORT CURVE STRIP VI SCH ×5 (17:45→22:37)
[2022-07-15] MEDS: MORPHINE SULFATE INJ 2 MG/ml SYRG IV PRN ×2 (17:54→22:40)
[2022-07-15] MEDS: CLINDAMYCIN 600MG IV 50 ML IV SCH (18:32)
[2022-07-16] MEDS: ACCU-CHEK COMFORT CURVE STRIP VI SCH ×10 (00:15→22:41)
[2022-07-16] MEDS: SODIUM CHLORIDE 0.9% 1,000 ML IV SCH ×3 (00:16→09:49)
[2022-07-16] MEDS: CLINDAMYCIN 600MG IV 50 ML IV SCH ×3 (01:45→18:01)
[2022-07-16 06:35] LABS: Basophils # (auto) 0 10 ^3/uL (0-0.2); Basophils % (auto) 0.2 % (0.0-2.0); Eosinophils # (auto) 0 10 ^3/uL (0-0.8); Eosinophils % (auto) 0.2 % (0.0-7.0); Hematocrit 39.4 % (41.0-53.0); Hemoglobin 13.5 g/dL (13.5-17.5); Lymphocytes % (auto) 9.1 % (10.0-50.0); Mean Corpuscular Hemoglobin 28.1 pg (28.0-32.0); Mean Corpuscular Hgb Conc. 34.2 g/dL (32.0-36.0); Mean Corpuscular Volume 82.1 fL (80.0-100.0); Monocytes # (auto) 1.3 10 ^3/uL (0-1.3); Monocytes % (auto) 12.2 % (0.0-12.0); Neutrophils # (auto) 8.3 10 ^3/uL (1.6-8.6); Neutrophils % (auto) 78.3 % (37.0-80.0); Red Cell Distribution Width 13.2 % (11.8-14.3); White Blood Cell 10.6 10^3/uL (4.4-10.8)
[2022-07-16 06:57] LABS: Albumin 2.6 g/dL (3.4-5.0); BUN/Creatinine Ratio 12.7; Calcium 8.2 mg/dL (8.5-10.1)
[2022-07-16 06:59] LABS: Bilirubin, Total 0.4 mg/dL (0.2-1.0); Total Protein 6.7 g/dL (6.4-8.2)
[2022-07-16] MEDS: InsuLIN R (HUMAN) 100 UNITS in SODIUM CHL 0.9% 99 ML IV SCH (08:55)
[2022-07-16] MEDS ORDERED: cefTRIAXone 1GM/50ML D5W 50 ML IV SCH (09:00)
[2022-07-16] MEDS: PANTOPRAZOLE 40 MG TAB PO SCH (10:13)
[2022-07-16] MEDS: ENOXAPARIN SOD 40 MG/0.4 ML SYRINGE SC SCH (10:13)
[2022-07-16] MEDS: INSULIN LANTUS (GLARGINE) 1 /0.01ml (100units/ml) SC SCH (10:20)
[2022-07-16] MEDS: MORPHINE SULFATE INJ 2 MG/ml SYRG IV PRN (11:57)
[2022-07-16] MEDS ORDERED: DEXTROSE (50%) 50ML SYRG IV PRN (13:45)
[2022-07-16] MEDS: POTASSIUM CHL 20MEQ/100ML 100 ML IV SCH ×2 (14:35→16:18)
[2022-07-16 14:45] LABS: Urine Bacteria NONE SEEN /hpf (None Seen); Urine Blood Negative /uL (Negative); Urine Mucus FEW (None Seen); Urine Specific Gravity 1.028 (1.001-1.035); Urine WBC 1 /hpf (0 - 3)
[2022-07-16 14:54] LABS: Alcohol, Urine < 3.0 mg/dL (0-10); Amphetamine Screen, Urine NEGATIVE (NEGATIVE); Barbiturate Scree,Urine NEGATIVE (NEGATIVE); Benzodiazephine Screen, Urine NEGATIVE (NEGATIVE); Cannabinoid Screen, Urine NEGATIVE (NEGATIVE); Cocaine Screen, Urine NEGATIVE (NEGATIVE); Opiate Scree,Urine NEGATIVE (NEGATIVE); Phencyclidine Screen, Urine NEGATIVE (NEGATIVE)
[2022-07-16] MEDS: InsuLIN REG 1unit/0.01ml Soln (100units/ml) SC SCH ×2 (18:00→23:19)
[2022-07-17] MEDS: SODIUM CHLORIDE 0.9% 1,000 ML IV SCH ×3 (01:48→17:20)
[2022-07-17] MEDS: CLINDAMYCIN 600MG IV 50 ML IV SCH ×3 (01:48→18:22)
[2022-07-17] MEDS: MORPHINE SULFATE INJ 2 MG/ml SYRG IV PRN ×2 (01:54→22:17)
[2022-07-17 04:56] LABS: Basophils # (auto) 0 10 ^3/uL (0-0.2); Basophils % (auto) 0.4 % (0.0-2.0); Eosinophils # (auto) 0.1 10 ^3/uL (0-0.8); Eosinophils % (auto) 1.1 % (0.0-7.0); Hematocrit 38.1 % (41.0-53.0); Hemoglobin 13.1 g/dL (13.5-17.5); Lymphocytes # (auto) 1.3 10 ^3/uL (0.4-5.4); Lymphocytes % (auto) 20.8 % (10.0-50.0); Mean Corpuscular Hemoglobin 27.9 pg (28.0-32.0); Mean Corpuscular Hgb Conc. 34.3 g/dL (32.0-36.0); Mean Corpuscular Volume 81.3 fL (80.0-100.0); Monocytes # (auto) 0.8 10 ^3/uL (0-1.3); Monocytes % (auto) 11.8 % (0.0-12.0); Neutrophils # (auto) 4.3 10 ^3/uL (1.6-8.6); Neutrophils % (auto) 65.9 % (37.0-80.0); Nucleated Red Blood Cells % 0.2 %; Red Blood Cells 4.69 10^6/uL (4.5-5.90); Red Cell Distribution Width 13.4 % (11.8-14.3); White Blood Cell 6.5 10^3/uL (4.4-10.8)
[2022-07-17 05:08] LABS: Potassium 3.2 mmol/L (3.5-5.1)
[2022-07-17 05:10] LABS: BUN/Creatinine Ratio 9.4
[2022-07-17] MEDS: ACCU-CHEK COMFORT CURVE STRIP VI SCH ×4 (06:48→22:18)
[2022-07-17] MEDS: InsuLIN REG 1unit/0.01ml Soln (100units/ml) SC SCH ×5 (07:28→22:18)
[2022-07-17] MEDS ORDERED: POTASSIUM EFFERVESENT TAB 25 MEQ GT ONE (11:15)
[2022-07-17] MEDS: ENOXAPARIN SOD 40 MG/0.4 ML SYRINGE SC SCH (11:27)
[2022-07-17] MEDS: PANTOPRAZOLE 40 MG TAB PO SCH (11:27)
[2022-07-17] MEDS: INSULIN LANTUS (GLARGINE) 1 /0.01ml (100units/ml) SC SCH (11:33)
[2022-07-17 13:00] VITALS: BP 113/72
[2022-07-17 17:00] VITALS: BP 114/68
[2022-07-17 22:00] VITALS: BP 110/66
[2022-07-18] MEDS: CLINDAMYCIN 600MG IV 50 ML IV SCH ×2 (01:29→09:04)
[2022-07-18] MEDS: SODIUM CHLORIDE 0.9% 1,000 ML IV SCH ×3 (01:30→16:15)
[2022-07-18 05:00] VITALS: BP 111/70
[2022-07-18] MEDS: InsuLIN REG 1unit/0.01ml Soln (100units/ml) SC SCH ×2 (06:14→12:04)
[2022-07-18] MEDS: ACCU-CHEK COMFORT CURVE STRIP VI SCH ×2 (06:17→12:03)
[2022-07-18 07:19] LABS: Basophils # (auto) 0 10 ^3/uL (0-0.2); Basophils % (auto) 0.6 % (0.0-2.0); Eosinophils # (auto) 0.1 10 ^3/uL (0-0.8); Eosinophils % (auto) 1.9 % (0.0-7.0); Hematocrit 38.9 % (41.0-53.0); Hemoglobin 13.5 g/dL (13.5-17.5); Lymphocytes # (auto) 1.4 10 ^3/uL (0.4-5.4); Lymphocytes % (auto) 38.2 % (10.0-50.0); Mean Corpuscular Hemoglobin 28.3 pg (28.0-32.0); Mean Corpuscular Hgb Conc. 34.6 g/dL (32.0-36.0); Mean Corpuscular Volume 81.6 fL (80.0-100.0); Monocytes # (auto) 0.5 10 ^3/uL (0-1.3); Monocytes % (auto) 12.6 % (0.0-12.0); Neutrophils # (auto) 1.8 10 ^3/uL (1.6-8.6); Neutrophils % (auto) 46.7 % (37.0-80.0); Nucleated Red Blood Cells % 0.2 %; Red Blood Cells 4.77 10^6/uL (4.5-5.90); Red Cell Distribution Width 13.5 % (11.8-14.3); White Blood Cell 3.8 10^3/uL (4.4-10.8)
[2022-07-18 07:41] LABS: BUN/Creatinine Ratio 11.9; Calcium 8.1 mg/dL (8.5-10.1); Potassium 3.4 mmol/L (3.5-5.1)
[2022-07-18 08:40] VITALS: BP 113/73
[2022-07-18] MEDS: ENOXAPARIN SOD 40 MG/0.4 ML SYRINGE SC SCH (09:04)
[2022-07-18] MEDS: PANTOPRAZOLE 40 MG TAB PO SCH (09:04)
[2022-07-18] MEDS: INSULIN LANTUS (GLARGINE) 1 /0.01ml (100units/ml) SC SCH (09:11)
[2022-07-18] MEDS ORDERED: AMOX500T86 PO (11:27)
[2022-07-18 12:57] VITALS: BP 103/62
[2022-07-18 13:00] VITALS: BP 103/62
== END 2022-07-18 15:30 | disposition home or self-care (01) | DRG 720 ==
LOC: ER 12:19 → TELE 16:38 → TELE-WESTW 07-17 11:14
PROVIDERS: ADMIT Nurse Practitioner Family; ATTEND Internal Medicine Pulmonary Disease
DX: A41.9 Sepsis, unspecified organism (principal); N17.9 Acute kidney failure, unspecified; E11.10 Type 2 diabetes mellitus with ketoacidosis without coma; L03.211 Cellulitis of face; E87.5 Hyperkalemia; Z20.822 Contact with and (suspected) exposure to COVID-19; R55 Syncope and collapse; E87.6 Hypokalemia; Z79.4 Long term (current) use of insulin; Z91.199 Patient's noncompliance with other medical treatment and regimen due to unspecified reason; Z83.3 Family history of diabetes mellitus
CPT/HCPCS: 36415; 36600; 70450; 71045; 80048; 80053; 80307; 81001; 82010; 82805; 82962; 83036; 83605; 84132; 85025; 85379; 87040; 87077; 87186; 87426; 93005; 96361; 96365; 96366; 96367; 96372; 96375; G0378; J0696; J1815; J2543; J3480; J3490

== ENCOUNTER 2024-05-16 07:57 | Emergency (ER) | payer MEDICAID ==
[~2024-05-16] VITALS: Ht 167.6 cm; Wt 62.2 kg
[~2024-05-16 07:57] MED LIST changes: +AMOX500T86 PO; -INSU100I44 SC; +INSU100I54 SC
[2024-05-16 08:16] VITALS: PULSE 132; RESP 17; O2SAT 99
[2024-05-16] MEDS: SODIUM CHLORIDE 0.9% 1,000 ML IV ONE (08:18)
--- NOTE | 2024-05-16 08:22 | ED.PDOC ---
History of Present Illness HPI Comments 29-year-old male with PMHx DM presents with a chief complaint of hyperglycemia with dizziness and nausea. Patient reports that he drank a lot of alcohol last night and took his insulin without eating. Patient mentions that he woke up this morning and was feeling very dizziness "to the point where I could not walk" and then was nauseous. Patients blood sugar upon triage was 369. Patient mentions that he feels anxious about how he feels. Patient denies any active pain at this time. Chief Complaint: Hyperglycemia Time Seen by MD: 08:10 Primary Care Provider: flavio Reviewed Notes: Nurses Notes, Medications, Allergies Allergies: Coded Allergies: NO KNOWN ALLERGIES (Unverified , 12/25/19) Home Meds Active Scripts Amoxicillin & Pot Clavulanate (Augmentin) 500 Mg Tab, 1 TAB PO BID, #14 TAB Prov:FÉLIX PALMER MD 07/18/22 Insulin Lispro (Insulin Lispro Kwikpen) 100 Unit/Ml Inj, 10 UNIT SC TIDWM, #14 INJ Prov:DEBORA JIANG MD 09/05/21 Insulin Glargine (Basaglar Kwikpen) 100 Unit/Ml Inj, 15 UNIT SC BID, #10 INJ Prov:DEBORA JIANG MD 09/05/21 Insulin Syringe/Needle U-100 (ADVOCATE INSULIN SYRINGE/) 0.5 Mg/31 G Mis, MG XX, #30 Prov:OSMEL FAULKNER MD 07/13/21 Famotidine (PEPCID TABLET) 20 Mg Tb, 20 MG PO Q12HR for 30 Days, #60 TAB Prov:JAKI STATON MD 12/28/19 Multiple Vitamin (Multivitamins) Tab, 1 TAB PO DAILY, #90 TAB 0 Refills Prov:JAKI STATON MD 12/28/19 Information Source: Patient Mode of Arrival: Ambulatory Severity: Moderate Timing: Hours Duration: Since onset Prehospital treatment: None Past Medical History PAST MEDICAL HISTORY: DM Surgical History: Denies all surgeries Family History Family History: Family hx of DM Social History Smoker: Quit Less Than 1 Year Alcohol: Heavy Drugs: Marijuana, Methamphetamine Lives In: Home Constitutional: denies: chills, diaphoresis, fatigue, fever, malaise, sweats, weakness, others EENTM: denies: blurred vision, double vision, ear bleeding, ear discharge, ear drainage, ear pain, ear ringing, eye pain, eye redness, hearing loss, mouth pain, mouth swelling, nasal discharge, nose bleeding, nose congestion, nose pain, photophobia, tearing, throat pain, throat swelling, voice changes, others Respiratory: denies: cough, hemoptysis, orthopnea, SOB at rest, shortness of breath, SOB with excertion, stridor, wheezing, others Cardiovascular: denies: chest pain, dizzy spells, diaphoresis, Dyspnea on exertion, edema, irregular heart beat, left arm pain, lightheadedness, palpitations, PND, syncope, others Gastrointestinal: reports: nausea; denies: abdomen distended, abdominal pain, blood streaked bowels, constipated, diarrhea, dysphagia, difficulty swallowing, hematemesis, melena, poor appetite, poor fluid intake, rectal bleeding, rectal pain, vomiting, others Genitourinary: denies: burning, dysuria, flank pain, frequency, hematuria, incontinence, penile discharge, penile sore, pain, testicle pain, testicle swelling, urgency, others Neurological: reports: dizziness; denies: fainting, headache, left sided numbness, left sided weakness, numbness, paresthesia, pre-existing deficit, right sided numbness, right sided weakness, seizure, speech problems, tingling, tremors, weakness, others Musculoskeletal: denies: back pain, gout, joint pain, joint swelling, muscle pain, muscle stiffness, neck pain, others Integumetry: denies: bruises, change in color, change in hair/nails, dryness, laceration, lesions, lumps, rash, wounds, others Allergic/Immunocompromised: denies: Difficulty Healing, Frequent Infections, Hives, Itching, others Hematologic/Lymphatic: denies: anemia, blood clots, easy bleeding, easy bruising, swollen glands, others Endocrine: denies: excessive hunger, excessive sweating, excessive thirst, excessive urination, flushing, intolerance to cold, intolerance to heat, unex plained weight gain, unexplained weight loss, others Psychiatric: denies: anxiety, bipolar disorder, depression, hopeless, panic disorder, schizophrenia, sleepless, suicidal, others All Other Systems: Reviewed and Negative Physical Exam General Appearance: No Apparent Distress HEENT: Normal ENT Inspection, Pharynx Normal, TMs Normal Neck: Full Range of Motion, Non-Tender, Normal, Normal Inspection Respiratory: Chest Non-Tender, Lungs Clear, No Accessory Muscle Use, No Respiratory Distress, Normal Breath Sounds Cardiovascular: No Edema, No JVD, No Murmur, No Gallop, Normal Peripheral Pulses, Regular Rate/Rhythm Breast Exam: Deferred Gastrointestinal: No Organomegaly, Non Tender, No Pulsatile Mass, Normal Bowel Sounds, Soft Genitalia: Deferred Pelvic: Deferred Rectal: Deferred Extremities: No calf tenderness, Normal capillary refill, Normal inspection, Normal range of motion, Non-tender, No pedal edema Musculoskeletal : Apperance: Normal Neurologic: Alert, shipping and receiving II-XII nml as Tested, No Motor Deficits, Normal Affect, Normal Mood, No Sensory Deficits Cerebellar Function: Normal Reflexes: Normal Skin: Dry, Normal Color, Warm Lymphatic: No Adenopathy Was a procedure done? Was a procedure done?: No Differential Dx Considerations may include: Generalized weakness, electrolyte imbalance, dehydration, hyperglycemia X-Ray, Labs, Meds, VS Vital Signs Date Time Temp Pulse Resp B/P (MAP) Pulse Ox O2 Delivery O2 Flow Rate FiO2 05/16/24 08:16 132 17 99 Room Air* 0 21 05/16/24 08:16 129 17 100 Room Air 05/16/24 08:16 129 17 137/86 (103) 100 05/16/24 08:09 97.6 134 19 144/98 (113) 99 Lab Test 05/16/24 09:19 05/16/24 08:21 05/16/24 08:20 05/16/24 08:19 Range/Units POC Glucose 266 H 351 H 70-106 mg/dl White Blood Count 7.6 4.4-10.8 10^3/uL Red Blood Count 4.95 4.5-5.90 10^6/uL Hemoglobin 15.0 13.5-17.5 g/dL Hematocrit 42.7 41.0-53.0 % Mean Corpuscular Volume 86.2 80.0-100.0 fL Mean Corpuscular Hemoglobin 30.2 28.0-32.0 pg Mean Corpuscular Hemoglobin Concent 35.1 32.0-36.0 g/dL Red Cell Distribution Width 14.2 11.8-14.3 % Platelet Count 282 140-450 10^3/uL Mean Platelet Volume 6.7 L 6.9-10.8 fL Neutrophils (%) (Auto) 70.4 37.0-80.0 % Lymphocytes (%) (Auto) 22.4 10.0-50.0 % Monocytes (%) (Auto) 6.3 0.0-12.0 % Eosinophils (%) (Auto) 0.5 0.0-7.0 % Basophils (%) (Auto) 0.4 0.0-2.0 % Neutrophils # (Auto) 5.4 1.6-8.6 10 ^3/uL Lymphocytes # (Auto) 1.7 0.4-5.4 10 ^3/uL Monocytes # (Auto) 0.5 0-1.3 10 ^3/uL Eosinophils # (Auto) 0 0-0.8 10 ^3/uL Basophils # (Auto) 0 0-0.2 10 ^3/uL Nucleated Red Blood Cells 0.0 % Sodium Level 134 L 136-145 mmol/L Potassium Level 3.6 3.5-5.1 mmol/L Chloride Level 97 L 98-107 mmol/L Carbon Dioxide Level 23 20-31 mmol/L Anion Gap 14 5-15 Blood Urea Nitrogen 7 L 9-23 mg/dL Creatinine 0.96 0.700-1.30 mg/dL Glomerular Filtration Rate Calc 110 >90 mL/min BUN/Creatinine Ratio 7.3 L 10.0-20.0 Serum Glucose 363 H 74-106 mg/dL Calcium Level 10.8 H 8.7-10.4 mg/dL Plasma/Serum Blood Alcohol < 3.0 <10 mg/dL Urine Color Light-yellow Yellow Urine Clarity Clear Clear Urine pH 5.5 5.0-9.0 Urine Specific [place] 1.043 H 1.001-1.035 Urine Protein Negative Negative Urine Ketones 1+ H Negative Urine Blood Negative Negative /uL Urine Nitrite Negative Negative Urine Bilirubin Negative Negative Urine Urobilinogen Normal Negative mg/dL Urine Leukocyte Esterase Negative Negative /uL Urine RBC 1 0 - 3 /hpf Urine WBC None seen 0 - 3 /hpf Urine Squamous Epithelial Cells Few <5 /hpf Urine Bacteria None seen None Seen /hpf Urine Glucose 4+ H Normal mg/dL Urine Opiates Screen Neg NEGATIVE Urine Fentanyl Screen Neg NEGATIVE Urine Barbiturates Screen Neg NEGATIVE Urine Phencyclidine Screen Neg NEGATIVE Urine Amphetamines Screen Pos NEGATIVE Urine Benzodiazepines Screen Neg NEGATIVE Urine Cocaine Screen Neg NEGATIVE Urine Cannabinoids Screen Neg NEGATIVE Test 05/16/24 08:04 Range/Units POC Glucose 369 H 70-106 mg/dl Current Medications Medications (Trade) Dose Ordered Sig/Wilmer Route Start Time Stop Time Status Last Admin Sodium Chloride 1,000 ml @ 1,000 mls/hr Q1H ONCE IV 05/16/24 08:15 05/16/24 09:14 DC 05/16/24 08:18 Insulin Human Regular (InsuLIN R) 5 units ONCE ONCE IV 05/16/24 08:15 05/16/24 08:16 DC 05/16/24 08:32 The urine tox is positive for methamphetamines The urine test is negative for infection The CBC and chemistry panel are within normal limits except for the hyperglycemia. The patient was given a 1 L bolus of normal saline The patient was given insulin 5 units IV push At this time, the patient was given substance abuse counseling The patient was given a prescription of Zofran in his being discharged The patient will return to the emergency department's the condition worsens. Time of 1ST Reevaluation: 08:40 Reevaluation 1ST: Unchanged Patient Education/Counseling: Diagnosis, Treatment, Prognosis, Need For Follow Up Family Education/Counseling: No Family Present Departure 1 Departure Time of Disposition: 10:44 Impression: Primary Impression: Hyperglycemia Additional Impression: Methamphetamine abuse Disposition: 01 HOME / SELF CARE / HOMELESS Condition: Fair Discharged With: Self Critical Care Note Critical Care Time?: No Stability Stability form required: No Heart Score Heart Score: Heart Score Response (Comments) Value History N/A 0 EKG N/A 0 Age N/A 0 Risk Factors N/A 0 Troponin N/A 0 Total 0 I personally scribed for GEREMIAS DESOUZA MD ([email or web address]) on 05/16/24 at 08:22. Electronically submitted by Mehul Murcia ([email or web address]). GEREMIAS DESOUZA MD May 16, 2024 08:22
[2024-05-16] MEDS: InsuLIN REG 1unit/0.01ml Soln (100units/ml) IV ONE (08:32)
[2024-05-16 08:38] LABS: Basophils # (auto) 0 10 ^3/uL (0-0.2); Basophils % (auto) 0.4 % (0.0-2.0); Eosinophils # (auto) 0 10 ^3/uL (0-0.8); Eosinophils % (auto) 0.5 % (0.0-7.0); Hematocrit 42.7 % (41.0-53.0); Lymphocytes # (auto) 1.7 10 ^3/uL (0.4-5.4); Lymphocytes % (auto) 22.4 % (10.0-50.0); Mean Corpuscular Hemoglobin 30.2 pg (28.0-32.0); Mean Corpuscular Hgb Conc. 35.1 g/dL (32.0-36.0); Mean Corpuscular Volume 86.2 fL (80.0-100.0); Monocytes # (auto) 0.5 10 ^3/uL (0-1.3); Monocytes % (auto) 6.3 % (0.0-12.0); Neutrophils # (auto) 5.4 10 ^3/uL (1.6-8.6); Neutrophils % (auto) 70.4 % (37.0-80.0); Platelet Count (auto) 282 10^3/uL (140-450); Red Blood Cells 4.95 10^6/uL (4.5-5.90); Red Cell Distribution Width 14.2 % (11.8-14.3); White Blood Cell 7.6 10^3/uL (4.4-10.8)
[2024-05-16 08:52] LABS: Chloride 97 mmol/L (98-107); Potassium 3.6 mmol/L (3.5-5.1); Sodium 134 mmol/L (136-145)
[2024-05-16 08:53] LABS: Anion Gap 14 (5-15); Carbon Dioxide 23 mmol/L (20-31)
[2024-05-16 08:54] LABS: Calcium 10.8 mg/dL (8.7-10.4)
[2024-05-16 08:58] LABS: Glucose 363 mg/dL (74-106)
[2024-05-16 08:59] LABS: BUN/Creatinine Ratio 7.3 (10.0-20.0); Blood Alcohol < 3.0 mg/dL (<10); Blood Urea Nitrogen 7 mg/dL (9-23)
[2024-05-16 09:24] LABS: Urine Bacteria None Seen /hpf (None Seen); Urine WBC None Seen /hpf (0 - 3)
[2024-05-16 09:35] LABS: Urine Blood Negative /uL (Negative); Urine Clarity Clear (Clear); Urine Color Light-Yellow (Yellow); Urine Protein, UAD Negative (Negative); Urine Specific Gravity 1.043 (1.001-1.035); Urine Urobilinogen Normal (Negative); Urine pH 5.5 (5.0-9.0)
[2024-05-16 09:43] LABS: Amphetamine Screen, Urine Pos (NEGATIVE)
[2024-05-16 09:44] LABS: Barbiturate Scree,Urine Neg (NEGATIVE); Benzodiazephine Screen, Urine Neg (NEGATIVE); Cannabinoid Screen, Urine Neg (NEGATIVE); Cocaine Screen, Urine Neg (NEGATIVE); Opiate Scree,Urine Neg (NEGATIVE); Phencyclidine Screen, Urine Neg (NEGATIVE)
[2024-05-16 11:00] VITALS: BP 127/75; PULSE 116; RESP 17; TEMP 98.7; O2SAT 100
== END 2024-05-16 11:03 | disposition home or self-care (01) ==
LOC: ER 07:57
DX: E11.65 Type 2 diabetes mellitus with hyperglycemia (principal); F12.10 Cannabis abuse, uncomplicated; F15.10 Other stimulant abuse, uncomplicated; R42 Dizziness and giddiness; Z79.4 Long term (current) use of insulin; Z79.899 Other long term (current) drug therapy; Z87.891 Personal history of nicotine dependence
CPT/HCPCS: 36415; 80048; 80307; 80320; 81001; 82962; 85025; 96361; 96374; 99283; J1815; J7030